=== PATIENT | female | born 2000 | race African-American/Black ===

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

== ENCOUNTER 2021-11-08 11:43 | Emergency (ER) | payer OTHER ==
[2021-11-08 11:51] VITALS: BP 122/72; PULSE 74; TEMP 97.8; BMI 38.7
[2021-11-08] MEDS ORDERED: IBUPROFEN 600 MG TABLET (FP) PO ONE ×2 (12:42→12:44)
== END 2021-11-08 13:23 | disposition home or self-care (01) ==
LOC: JERFT 11:43
DX: M53.3 Sacrococcygeal disorders, not elsewhere classified (principal)
CPT/HCPCS: 72220-TC-FY; 99283-25